=== PATIENT | female | born 1975 | race Caucasian/White ===

== ENCOUNTER 2017-03-02 17:34 | Emergency (ER) | payer OTHER ==
[~2017-03-02] VITALS: Ht 172.7 cm; Wt 59.0 kg
[2017-03-02 17:40] VITALS: BP 133/84
--- NOTE | 2017-03-02 17:52 | ED HAND/WRIST INJURY COMPLAINT ---
History of Present Illness General Chief Complaint: Laceration Procedure Stated Complaint: PUNCTURE TO RT HAND Source: patient, old records Exam Limitations: no limitations Vital Signs & Intake/Output Vital Signs & Intake/Output Vital Signs Date Time Temp Pulse Resp B/P B/P Pulse O2 O2 Flow FiO2 Mean Ox Delivery Rate 03/02 1807 98.5 03/02 1740 98.5 75 20 133/84 97 Room Air Allergies Coded Allergies: MDX - Tetracycline (TETRACYCLINE) (04/30/11) Reconcile Medications Cephalexin (Keflex) 500 MG CAPSULE 1 CAP PO TID PPX Triage Note: PT TO ED C/O PUNCTURE TO LEFT HAND FROM PARING KNIFE. HAPPENED 30 MINS AGO. BLEEDING CONTROLLED. UNKNOWN LAST TETATNUS SHOT. Triage Nurses Notes Reviewed? yes Occurred: just prior to arrival Duration: hour(s): (1), constant Timing: recent history Injury Environment: home Severity: mild Severity Numbers: 4 Pain/Injury Location: Left: Hand. Context: laceration Method of Injury: laceration No Modifying Factors: none Associated Symptoms: none : No Patient currently breastfeeds: No HPI: 41-year-old female presents to ER for evaluation status post sustaining a puncture laceration to the left hand when she was attempting to cut open a coconut with a paring knife. She states the night slipped and went through her hand is a through and through laceration. She now presents with a mild aching nonradiating pain. Her last tetanus is unknown. She is not taken anything for her symptoms she is right-hand dominant. She denies any difficulty with range of motion of finger no numbness or tingling or modifying factors or associated symptoms otherwise. (LORRIE VICTOR) Past History Travel History Traveled to [place] past 21 day No Medical History Any Pertinent Medical History? see below for history Psychiatric: anxiety, pmdd Surgical History Surgical History: non-contributory Psychosocial History What is your primary language Thai Tobacco Use: Quit >30 days ago ETOH Use: occasional use Illicit Drug Use: denies illicit drug use Family History Hx Contributory? No (LORRIE VICTOR) Review of Systems Review of Systems Constitutional: Reports: see HPI. All Other Systems: Reviewed and Negative Comments Review of systems: See HPI, All other systems negative. Constitutional, no chills no fever, no malaise HEENT: no sore throat no congestion, Cardiovascular: No chest pain , no palpitation Skin: no rashes, no change in skin Respiratory: No dyspnea no cough no sputum GI: No nausea no vomiting, : No dysuria Muscle skeletal: No joint pain, no joint swelling, no back pain, no neck pain, Neurologic: No numbness no headache Psych: No stress Heme/endocrine: No bruising Immunology: No lymphadenopathy (LORRIE VICTOR) Physical Exam Physical Exam General Appearance: well developed/nourished, no apparent distress, alert, awake Hand Left: lacerations Hand Right: normal inspection, normal range of motion Comments: Well-developed well-nourished patient in no apparent distress. HEENT: Atraumatic, extraocular motion intact Neck: Supple, FROM Back: FROM Respiratory: No respiratory distress. Patient speaking in full complete sentences. Breath sounds clear to auscultation bilaterally: NO W/R/R Shoulder: Atraumatic/Stable. FROM . Elbow: Atraumatic/stable. FROM. No laxity Upper arm/Forearm: Atraumatic. Nontender. No edema, 5 out of 5 blower insulator strength noted to bilateral upper extremities Hand/Wrist: There is a 0.5 cm superficial linear laceration over the palmar aspect of the left first metacarpal as well as a 0.5 cm superficial puncture on the dorsal aspect of left first metacarpal consistent with a through and through laceration, the patient has full range of motion of the finger there is no swelling there is no ecchymosis or active bleeding, there is full sensation noted to the left first finger the rest of the hand at all other fingers are atraumatic with full range of motion. Pulses: Normal/equal radial pulses bilaterally. Brisk cap refill LOWER Extremities: full range of motion Neuro: awake, alert, and oriented to person, place and time. There were no obvious focal neurologic abnormalities. Skin: Warm & dry;No appreciable rash on exposed skin Psych: Mood affect normal, normal memory normal judgment. (LORRIE VICTOR) Progress Differential Diagnosis: contusion, compartment syndrome, dislocation, fracture, sprain, tendon injury Plan of Care: Orders Procedure Date/time Status XRY-HAND, 3 View LEFT 03/02 1751 Active Wound thoroughly irrigated with normal saline Betadine peroxide Dermabond sterile dressings applied tetanus IM ordered discussed with the patient her x- ray results the possibility of foreign body tendon injury not seen on examination still exists to return with any concerns or signs of infection answered all her questions she feels comfortable this plan (LORRIE VICTOR) Diagnostic Imaging: Viewed by Me: Radiology Read. Discussed w/RAD: Radiology Read. Radiology Impression: PATIENT: ELFEGO TAI PRESENT AGE: 41 PATIENT ACCOUNT NO: [id number] : 75 LOCATION: [facility] ORDERING PHYSICIAN: LORRIE WATKINS SERVICE DATE: 03/02/17-1750 EXAM TYPE: RAD - XRY-HAND, LEFT EXAMINATION: XR HAND, LEFT CLINICAL INFORMATION: Left hand puncture. COMPARISON: None. TECHNIQUE: AP, lateral, and oblique views of the left hand. FINDINGS: The bones and soft tissues appear unremarkable. No acute fracture of the left hand is identified. Joint alignment is anatomic. Joint spaces are maintained. No erosions or soft tissue calcifications. IMPRESSION: No acute fracture or dislocation of the left hand. No radiopaque foreign bodies are identified. DICTATED BY: JESUS ANGELO MD DATE/TIME DICTATED:03/02/171814 AIRPORT DRIVER:COLBY DATE/TIME TRANSCRIBED:03/02/171814 CONFIDENTIAL, DO NOT COPY WITHOUT APPROPRIATE AUTHORIZATION. <Electronically signed in Other Vendor System> SIGNED BY: JESUS ANGELO MD 03/02/171825 (LORRIE VICTOR) Departure Departure Time of Disposition: 1816 Disposition: HOME OR SELF CARE Condition: Stable Clinical Impression Primary Impression: Skin laceration Referrals: MARIAN ARAUZ,JENNIFER Tamayo (PCP/Family) Additional Instructions: The Dermabond will dissolve on its own keep area clean and covered. keflex as discussed for wound prophylaxis. The possibility of a foreign body not seen on examination or x-ray or deep tendon injury exist. Return or follow-up with your primary care physician with any concerns or signs of infection: Redness warmth swelling discharge fever or chills. Departure Forms: Customer Survey General Discharge Information Prescriptions: Current Visit Scripts Cephalexin (Keflex) 1 CAP PO TID #15 CAP (LORRIE VICTOR) PA/FACTORY MACHINE COMPUTER OPERATOR Co-Sign Statement Statement: ED Attending supervision documentation- [] I saw and evaluated the patient. I have also reviewed all the pertinent lab results and diagnostic results. I agree with the findings and the plan of care as documented in the PA's/FACTORY MACHINE COMPUTER OPERATOR's documentation. [X] I have reviewed the ED Record and agree with the PA's/FACTORY MACHINE COMPUTER OPERATOR's documentation. [] Additions or exceptions (if any) to the PAs/FACTORY MACHINE COMPUTER OPERATOR's note and plan are summarized below: [] (JANINA ARAUZ,RIZWANA Pino) Procedures Laceration/Wound Repair Laceration/Wound Repair: Wound Location: upper extremity (1cm ) Wound's Depth, Shape: linear, superficial Wound Length (cm): 1 Wound Explored: clean, no foreign body removed, irrigated extensively Irrigated w/ Saline (ccs): 200 Betadine Prep? Yes Wound Repaired With: Dermabond Layer Closure? No Sterile Dressing Applied: Yes Date of Last Tetanus: 03/02/17 Tetanus Status: not up to date (OMARI WATKINS,LORRIE)
[2017-03-02] MEDS ORDERED: KEFLEX500 M1 PO (18:18)
--- NOTE | 2017-03-02 18:26 | RADIOLOGY REPORT ---
EXAMINATION: XR HAND, LEFT CLINICAL INFORMATION: Left hand puncture. COMPARISON: None. TECHNIQUE: AP, lateral, and oblique views of the left hand. FINDINGS: The bones and soft tissues appear unremarkable. No acute fracture of the left hand is identified. Joint alignment is anatomic. Joint spaces are maintained. No erosions or soft tissue calcifications. IMPRESSION: No acute fracture or dislocation of the left hand. No radiopaque foreign bodies are identified.
== END 2017-03-02 18:27 ==
LOC: ERH 17:34
DX: S61.432A Puncture wound without foreign body of left hand, initial encounter (principal); W26.0XXA Contact with knife, initial encounter; Y93.G1 Activity, food preparation and clean up; Y92.9 Unspecified place or not applicable
CPT/HCPCS: 73130-LT; 90471; 90714